=== PATIENT | female | born 1970 | race Caucasian/White ===

== ENCOUNTER 2021-01-02 18:13 | Emergency (ER) | payer BC ==
[2021-01-02] MEDS ORDERED: ZOFRAN ODT 4 MG4 MG PO (19:33)
[2021-01-02] MEDS ORDERED: LODINE CAP 300300 MG PO (19:33)
[2021-01-02] MEDS ORDERED: HYDROCODON-ACE1 EAC4 PO (19:34)
== END 2021-01-02 19:50 | disposition home or self-care (01) ==
LOC: ER1 18:13
DX: S82.852A Displaced trimalleolar fracture of left lower leg, initial encounter for closed fracture (principal); Z88.0 Allergy status to penicillin; Z88.5 Allergy status to narcotic agent; Z88.8 Allergy status to other drugs, medicaments and biological substances; X50.1XXA Overexertion from prolonged static or awkward postures, initial encounter; Y92.009 Unspecified place in unspecified non-institutional (private) residence as the place of occurrence of the external cause
CPT/HCPCS: 29515; 73600; 96374; 96375; 96376; 99283; J2270; J2405